=== PATIENT | female | born 2000 | race Caucasian/White ===

== ENCOUNTER 2021-05-21 18:39 | Emergency (ER) | payer OTHER ==
[~2021-05-21] VITALS: Ht 160 cm; Wt 66.0 kg
[2021-05-21 18:55] VITALS: BP 107/73
[2021-05-21] MEDS ORDERED: IBUP-2741 PO (19:00)
[2021-05-21] MEDS ORDERED: DIPHENHYDRAMINE 25MG CAPSULE PO ONE (20:30)
[2021-05-21] MEDS ORDERED: METOCLOPRAMIDE HCL 10MG TABLET PO ONE (20:30)
[2021-05-21] MEDS ORDERED: ACETAMINOPHEN 325MG TABLET PO ONE (20:30)
[2021-05-21] MEDS ORDERED: METO5TAB86 MT (22:45)
== END 2021-05-21 23:18 | disposition home or self-care (01) ==
LOC: ER 18:39
DX: R51.9 Headache, unspecified (principal); Z98.890 Other specified postprocedural states
CPT/HCPCS: 70450; 99284; J8597; Q0163

== ENCOUNTER 2022-08-21 18:26 | Emergency (ER) | payer MEDICAID, OTHER ==
[~2022-08-21] VITALS: Ht 160 cm; Wt 75.0 kg
[~2022-08-21 18:26] MED LIST: IBUP-2741 PO; METO5TAB86 MT
[2022-08-21] MEDS ORDERED: ONDANSETRON 4MG ODT PO STA (21:51)
[2022-08-21] MEDS ORDERED: IBUPROFEN 600MG TABLET PO STA (21:51)
[2022-08-21 22:04] VITALS: BP 113/63
[2022-08-21 22:42] LABS: CLARITY URINE CLEAR (CLEAR); COLOR URINE YELLOW (YELLOW); KETONES URINE NEGATIVE (NEGATIVE); LEUKOCYTE ESTERASE URINE 1+ (NEGATIVE); NITRITE URINE NEGATIVE (NEGATIVE); OCCULT BLOOD URINE NEGATIVE (NEGATIVE); PH URINE 5.5 (4.5-8.0); PROTEIN URINE NEGATIVE (NEGATIVE); SPECIFIC GRAVITY URINE 1.025 (1.005-1.030); UROBILINOGEN URINE 0.2 E.U./dL (0.2-1.0)
[2022-08-21 23:22] LABS: BASOPHILS % 0.4 % (0.0-2.0); EOSINOPHILS % 1.4 % (0.0-5.0); HEMATOCRIT. 38.7 % (36.0-48.0); HEMOGLOBIN. 12.6 g/dL (12.0-16.0); LYMPHOCYTES % 36.4 % (20.0-50.0); MEAN CORPUSCULAR VOLUME 85.7 fL (81.0-99.0); MEAN PLATELET VOLUME 9.8 fl (7.4-10.4); MONOCYTES % 5.9 % (2.0-8.0); NEUTROPHILS % 55.9 % (40.0-76.0); PLATELET 244 x1000/uL (130-400); RED BLOOD CELL COUNT 4.51 mill/uL (4.2-5.4); RED CELL DISTRIBUTION WIDTH 14.4 % (11.6-14.6)
[2022-08-21 23:24] LABS: CHLORIDE 103 mEq/L (98-107)
[2022-08-21] MEDS ORDERED: NITR-87 MT (23:24)
[2022-08-21] MEDS ORDERED: PYR200 MT (23:24)
[2022-08-22 00:28] LABS: HCG SCREEN NEGATIVE
== END 2022-08-22 | disposition home or self-care (01) ==
LOC: ER 19:51
DX: N30.90 Cystitis, unspecified without hematuria (principal); G44.209 Tension-type headache, unspecified, not intractable; Z98.890 Other specified postprocedural states; Z79.899 Other long term (current) drug therapy
CPT/HCPCS: 36415; 80053; 81003; 81025; 83690; 84703; 85025; 99283; Q0162

== ENCOUNTER 2023-09-17 15:51 | Emergency (ER) | payer MEDICAID ==
[~2023-09-17] VITALS: Ht 152.4 cm; Wt 63.0 kg
[~2023-09-17 15:51] MED LIST changes: +NITR-87 MT; +PYR200 MT
[2023-09-17 15:53] VITALS: O2SAT 100
[2023-09-17 17:43] LABS: BASOPHILS % 0.4 % (0.0-2.0); EOSINOPHILS % 1.8 % (0.0-5.0); HEMATOCRIT. 38.3 % (36.0-48.0); HEMOGLOBIN. 12.7 g/dL (12.0-16.0); LYMPHOCYTES % 22.9 % (20.0-50.0); MEAN CORPUSCULAR HEMOGLOBIN 28.6 pg (28.0-32.0); MEAN CORPUSCULAR HGB CONC 33.3 g/dL (31.0-37.0); MEAN CORPUSCULAR VOLUME 85.8 fL (81.0-99.0); MEAN PLATELET VOLUME 10.1 fl (7.4-10.4); NEUTROPHILS % 68.9 % (40.0-76.0); PLATELET 251 x1000/uL (130-400); RED BLOOD CELL COUNT 4.46 mill/uL (4.2-5.4); WHITE BLOOD COUNT 10.8 x1000/uL (4.5-11.0)
[2023-09-17 17:50] LABS: INR 0.9; PROTHROMBIN TIME 10.4 sec (9.6-11.0)
[2023-09-17 17:55] LABS: ALANINE AMINOTRANSFERASE 45 IU/L (10-49); ALBUMIN 4.6 g/dL (3.2-4.8); ASPARTATE AMINOTRANSFERASE 24 IU/L (<34); BILIRUBIN TOTAL 0.4 mg/dL (0.1-1.0); CALCIUM 9.2 mg/dL (8.7-10.4); CARBON DIOXIDE 25 mEq/L (21-32); CHLORIDE 106 mEq/L (98-107); CREATININE 0.6 mg/dL (0.6-1.0); GLUCOSE 89 mg/dL (70-105); POTASSIUM 3.7 mEq/L (3.5-5.1); SODIUM 137 mEq/L (136-145); UREA NITROGEN BLOOD 11 mg/dL (9-23)
[2023-09-17] MEDS ORDERED: ACET-2708 MT (18:02)
[2023-09-17 19:05] VITALS: BP 136/64; PULSE 88; RESP 18; TEMP 98.1
== END 2023-09-17 19:06 | disposition home or self-care (01) ==
LOC: ER 15:51
DX: R04.0 Epistaxis (principal); R53.83 Other fatigue; D64.9 Anemia, unspecified; Z98.890 Other specified postprocedural states; Z79.899 Other long term (current) drug therapy
CPT/HCPCS: 36415; 80053; 85025; 86900; 99283